=== PATIENT | female | born 1950 | race Caucasian/White ===

== ENCOUNTER 2017-03-29 21:18 | Inpatient (IN) | payer BC, OTHER ==
--- NOTE | 2017-03-29 22:01 | PDOC ---
History of Present Illness - General History Source: Patient Exam Limitations: No Limitations <Deandra Frank - Last Filed: 03/30/17 01:00> - General History Source: Patient Exam Limitations: No Limitations - History of Present Illness Initial Comments: 03/29/17 22:15 The patient is a 66 year old female with no reported significant past medical history, who presents to the ER with swelling and redness to the tip of the right index finger for two days. Patient states she is left hand dominant. Patient got her nails done three days ago and reports onset of pain under the nail of the right index finger and at the DIP one day ago. Patient states the redness and swelling gradually worsened. Pain is worse when pressing on the nail and the joint. Patient says she is not able to tell if she had a fever. Denies active bleeding, pus Denies paresthesia Denies weakness Denies numbness Denies history of gout PCP: Dr. Cherry Mann Allergies: Pollen, apple, peaches, plums Surgical Hx: Total Hysterectomy for fibroids <Jessica Whittington - Last Filed: 03/30/17 01:05> - General Chief Complaint: Redness To Affected Area Stated Complaint: FINGER SWOLLEN Time Seen by Provider: 03/29/17 21:41 Past History - Past Medical History Other medical history: denies - Immunization History Immunization Up to Date: Yes - Psycho/Social/Smoking Cessation Hx Anxiety: No Suicidal Ideation: No Smoking Status: No Smoking History: Never smoked Number of Cigarettes Smoked Daily: 0 Hx Alcohol Use: Yes (occasion) <Deandra Frank - Last Filed: 03/30/17 01:00> <Jessica Whittington - Last Filed: 03/30/17 01:05> - Past Medical History Allergies/Adverse Reactions: Allergies Allergy/AdvReac Type Severity Reaction Status Date / Time Penicillins Allergy Verified 03/29/17 21:23 Home Medications: Ambulatory Orders No Home Medications 0 dose .ROUTE UTDICT 05/02/13 Review of Systems - Review of Systems Able to Perform ROS?: Yes Comments:: 03/29/17 22:15 GENERAL/CONSTITUTIONAL: No: fever, chills, weakness, loss of appetite. HEAD, EYES, EARS, NOSE AND THROAT: No: change in vision, ear pain, discharge, sore throat, throat swelling. CARDIOVASCULAR: No: chest pain, lightheadedness, palpitations, syncope RESPIRATORY: No: cough, shortness of breath, wheezing, hemoptysis, stridor. GASTROINTESTINAL: No: nausea, vomiting, abdominal cramping, diarrhea, rectal bleeding, constipation. GENITOURINARY: No: dysuria, hematuria, frequency, urgency, flank pain. MUSCULOSKELETAL: No: back pain, neck pain, joint pain, muscle swelling or pain SKIN AND BREASTS: (+) redness and swelling on the tip of right index finger. No : lesions, pallor, rash or easy bruising. NEUROLOGIC: No: headache, vertigo, paresthesias, weakness ENDOCRINE: No: unexplained weight gain or loss HEMATOLOGIC/LYMPHATIC: No: anemia, easy bleeding, swelling nodes <Jessica Whittington - Last Filed: 03/30/17 01:05> *Physical Exam - Vital Signs Last Vital Signs Temp Pulse Resp BP Pulse Ox 97.6 F 76 18 141/97 99 03/29/17 21:20 03/29/17 21:20 03/29/17 21:20 03/29/17 21:20 03/29/17 21:20 <Deandra Frank - Last Filed: 03/30/17 01:00> - Vital Signs Last Vital Signs Temp Pulse Resp BP Pulse Ox 97.6 F 76 18 141/97 99 03/29/17 21:20 03/29/17 21:20 03/29/17 21:20 03/29/17 21:20 03/29/17 21:20 - Physical Exam Comments: 03/29/17 22:16 GENERAL: The patient is in no acute distress. HEAD: Normal with no signs of trauma. EYES: PERRLA, EOMI, sclera anicteric, conjunctiva clear. ENT: Ears normal, nares patent, oropharynx clear without exudates. Moist mucous membranes. NECK: Normal range of motion, supple without lymphadenopathy, JVD, or masses. LUNGS: Breath sounds equal, clear to auscultation bilaterally. No wheezes, and no crackles. HEART:Regular rate and rhythm, normal S1 and S2 without murmur, rub or gallop. ABDOMEN: Soft, nontender, normoactive bowel sounds. No guarding, no rebound. EXTREMITIES: Normal range of motion, no edema. No clubbing or cyanosis. No erythema, or tenderness. NEUROLOGICAL: Cranial nerves II through XII grossly intact. Normal speech. No focal neurological deficits. MUSCULOSKELETAL: Right index DIP is erythematous and swollen. Pain with movement of the DIP. No feeling of pus. No history of gout. Back non-tender to palpation, no CVA tenderness SKIN: Warm, Dry, normal turgor, no rashes or lesions noted. <Jessica Whittington - Last Filed: 03/30/17 01:05> ED Treatment Course - LABORATORY CBC & Chemistry Diagram: 03/29/17 22:45 03/29/17 22:45 <Deandra Frank - Last Filed: 03/30/17 01:00> - LABORATORY CBC & Chemistry Diagram: 03/29/17 22:45 03/29/17 22:45 <Jessica Whittington - Last Filed: 03/30/17 01:05> Medical Decision Making - Medical Decision Making 03/29/17 21:55 A portion of this note was documented by scribe services under my direction. I have reviewed the details of the note, within reason, and agree with the documentation with the following case summary and management plan written by me. Nursing documentation reviewed and incorporated into medical decision making This is a 66-year-old left-hand dominant female presented to emergency department with pain of the right index finger. Patient is status post manicure 3 days ago. She noted last night anger pain which has progressively worsened. Now she has pain even to the slightest touch of her finger. No fevers, no chills. On examination: No obvious abscess pt has tenderness with minimal palpation of the finger ? purulence beneath the nail 03/29/17 23:49 Laboratory Tests 03/29/17 03/29/17 22:45 22:45 WBC 7.4 Hgb 12.8 Hct 38.4 Plt Count 273 Sodium 142 Potassium 4.1 Chloride 106 Carbon Dioxide 28 BUN 13 D Creatinine 1.0 Random Glucose 103 03/29/17 23:50 Awaiting x ray 03/30/17 00:43 Will give clindamycin as patient states her ALLERGY to penicillin is a diffuse rash Upon re assessment, erythema streaking up the ulnar side of the pointer finger This is new 03/30/17 01:[address] Moss Will admit for IV abx Finger infection Lymphangitis <Deandra Frank - Last Filed: 03/30/17 01:00> - Medical Decision Making 03/30/17 01:[address] Moss <Jessica Whittington - Last Filed: 03/30/17 01:05> *DC/Admit/Observation/Transfer - Discharge Dispostion Admit: Yes <Deandra Frank - Last Filed: 03/30/17 01:00> - Attestations Scribe Attestion: 03/29/17 22:17 Documentation prepared by Jessica Whittington, acting as biomedical manager for Deandra Frank MD. <Jessica Whittington - Last Filed: 03/30/17 01:05> Diagnosis at time of Disposition: Cellulitis of finger of right hand - Discharge Dispostion Condition at time of disposition: Stable
[2017-03-29 22:59] LABS: BASOPHIL 1.3 % (0-2.0); MCH 31.6 pg (25.7-33.7); MCHC 33.3 g/dl (32.0-36.0); MEAN PLT VOLUME 7.8 fl (7.5-11.1); NEUTROPHILS 52.3 % (42.8-82.8); PLATELET COUNT 273 K/MM3 (134-434); RDW 13.8 % (11.6-15.6); WHITE BLOOD COUNT 7.4 K/mm3 (4.0-10.0)
[2017-03-29 23:35] LABS: ALBUMIN 3.9 g/dl (3.4-5.0); ANION GAP 8 (8-16); BILIRUBIN,TOTAL 0.4 mg/dL (0.2-1.0); CO2 28 mmol/L (21-32); GLUCOSE,RANDOM 103 mg/dL (74-106); SGOT/AST 15 U/L (15-37); SGPT/ALT 18 U/L (12-78); TOT PROT 7.1 g/dl (6.4-8.2)
[2017-03-29 23:36] LABS: ALK PHOS 108 U/L (45-117)
[2017-03-29] MEDS ORDERED: IBUPROFEN 800 MG/8 ML IJ IVPB ONE ×2 (23:50→23:53)
[2017-03-29] MEDS ORDERED: CEFAZOLIN (PRE-DOCKED) 50 ML IVPB ONE (23:51)
[2017-03-29] MEDS ORDERED: IBUPROFEN 600 MG TABLET (FP) PO ONE (23:51)
[2017-03-30] MEDS ORDERED: CLINDAMYCIN IVPB 300 MG in DEXTROSE 5%-WATER - 48 ML IVPB ONE ×2 (00:43→00:52)
[2017-03-30] MEDS ORDERED: CLINDAMYCIN 600MG PREMIX IVPB 50 ML IVPB ONE (00:49)
[2017-03-30] MEDS ORDERED: VANCOMYCIN 1,000 MG in DEXTROSE 5%-WATER - 250 ML IVPB ONE (00:51)
[2017-03-30] MEDS ORDERED: VANCOMYCIN 1 GRAM (PRE-DOCKED) 250 ML IVPB ONE (01:51)
[2017-03-30 03:43] VITALS: BMI 25.9
[2017-03-30] MEDS ORDERED: PT OWN MED DRAWER 7, Y5N ONE (08:57)
[2017-03-30] MEDS ORDERED: CLINDAMYCIN 300 MG PREMIX IVPB 50 ML IVPB SCH (09:00)
--- NOTE | 2017-03-30 12:33 | PN ---
Progress Note (short form) - Note Progress Note: ID consult dictated 66 year old female on no meds at home, dosen't go to the doctor much developed pain and swelling of the right index finger after a manicure on Thursday. no fevers or chills. the finger became more swollen and the pain was throbbing. she presented to the ED where she had an xray of the finger, blood cultures and was started on clindamycin (pen allergy). She as given one dose of vancomycin in the ED she notes improvement in the erythema and pain this am of note she has arthritic changes to all her fingers cellulitis right index finger- doubt septic arthritis- await hand surgery consult, no obvious abscess noted pen allergy -rash suggest continue clindamycin- adjust dose to 600 q8h, f/u with hand surgery if improved can switch to po clindamycin 300 tid in am would add bacid for next one month Problem List - Problems (1) Cellulitis of finger of right hand Code(s): L03.011 - CELLULITIS OF RIGHT FINGER (2) Anaphylactic reaction Code(s): T78.2XXA - ANAPHYLACTIC SHOCK, UNSPECIFIED, INITIAL ENCOUNTER (3) Penicillin allergy Code(s): Z88.0 - ALLERGY STATUS TO PENICILLIN
--- NOTE | 2017-03-30 13:08 | PN ---
Problem List - Problems (1) Cellulitis of finger of right hand Code(s): L03.011 - CELLULITIS OF RIGHT FINGER (2) Penicillin allergy Code(s): Z88.0 - ALLERGY STATUS TO PENICILLIN
[2017-03-30] MEDS: LACTOBACILLUS ACIDOPHILUS 1 EACH TAB (FP) PO SCH ×2 (13:24→21:00)
--- NOTE | 2017-03-30 16:52 | HP ---
Admitting History and Physical - Primary Care Physician PCP: Alex Moss - Admission Chief Complaint: finger pain History of Present Illness: Pt with right index pain after manicure on ; Thursday she started having finger pain, around the nail bed and under the nail; last night she came to ER and was admitted for treatment. History Source: Patient Limitations to Obtaining History: No Limitations - Smoking History Smoking history: Never smoked Aproximately how many cigarettes per day: 0 - Alcohol/Substance Use Hx Alcohol Use: Yes (occasion) Home Medications - Allergies Allergies/Adverse Reactions: Allergies Allergy/AdvReac Type Severity Reaction Status Date / Time Penicillins Allergy Verified 03/29/17 21:23 - Home Medications Home Medications: Ambulatory Orders No Home Medications 0 dose .ROUTE UTDICT 05/02/13 Review of Systems - Review of Systems Constitutional: denies: Chills, Fever Eyes: denies: Blurred Vision, Double Vision HENT: denies: Difficult Swallowing, Ear Discharge, Ear Pain, Throat Pain Neck: denies: Pain on Movement, Stiffness Cardiovascular: denies: Chest Pain, Edema, Palpitations Respiratory: denies: Cough, SOB, Wheezing Gastrointestinal: denies: Abdominal Pain, Diarrhea, Nausea, Vomiting Genitourinary: denies: Burning, Discharge Musculoskeletal: denies: Back Pain, Muscle Pain Integumentary: denies: Blister, Bruising Neurological: denies: Change in LOC, Change in Speech, Confusion Endocrine: denies: Excessive Sweating, Intolerance to Cold Hematology/Lymphatic: denies: Easily Bruised, Excessive Bleeding Physical Examination Vital Signs: Vital Signs Temperature 98.3 F 03/30/17 14:26 Pulse Rate 68 03/30/17 14:26 Respiratory Rate 20 03/30/17 14:26 Blood Pressure 123/76 03/30/17 14:26 O2 Sat by Pulse Oximetry (%) 97 03/30/17 09:00 Constitutional: Yes: No Distress, Calm Eyes: Yes: Conjunctiva Clear, EOM Intact, PERRL HENT: Yes: Normocephalic. No: Epistaxis Neck: Yes: Trachea Midline. No: Lymphadenopathy Cardiovascular: Yes: Regular Rate and Rhythm, S1, S2 Respiratory: Yes: Regular, CTA Bilaterally. No: Rales Gastrointestinal: Yes: Normal Bowel Sounds, Soft. No: Tenderness Renal/: No: CVA Tenderness - Left, CVA Tenderness - Right Musculoskeletal: No: Back Pain, Joint Swelling Extremities: Yes: Other (right index, distal phalanx with erythema and swelling and pain to palpation and apsive movements; no discharge, no bleed) Edema: No Neurological: Yes: Alert, Oriented, Cran Nerves II-XII Intact Labs: reviewed Imaging - Results X-ray: Pending Problem List - Problems (1) Cellulitis of finger of right hand Code(s): L03.011 - CELLULITIS OF RIGHT FINGER Assessment/Plan IV abtx. ID consult Ortho consult To f/u AM labs
[2017-03-30] MEDS: CLINDAMYCIN 600MG PREMIX IVPB 50 ML IVPB SCH (18:07)
--- NOTE | 2017-03-30 20:00 | CONS ---
DATE OF CONSULTATION: REQUESTING PHYSICIAN: Alex Moss MD HISTORY: This is a 66-year-old woman with no significant past medical history. She presented to the emergency room yesterday complaining of a painful, red, throbbing right index finger. She had a manicure on . She had artificial nails attached to her fingers as well. Subsequently, the right finger started bothering her. It became more erythematous and swollen, and the pain became more persistent over the course of the next several days. She presented last night to the ER with these complaints. There are no fevers or chills. She denies nausea, vomiting, diarrhea, or dysuria. She was given vancomycin and clindamycin in the emergency room and reports some moderate improvement in her symptoms. 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 She had an x-ray done that showed possible osteoarthritis. She was noted to have some streaking of erythema along the ulnar aspect of the 5th finger, and she was admitted. PAST MEDICAL HISTORY: Notable for an admission for anaphylaxis in 2013, which she reports was to [facility]. She required ICU admission for anaphylaxis. She has a history of appendectomy at age 14. She has had a history of section in the past. ALLERGIES: PENICILLIN. Some time in her 30s she had a reaction that she noted was a severe rash. SOCIAL HISTORY: She has 7 children, 6 of whom are alive. She is a . There is no history of any substance use. MEDICATIONS: She takes no medicines regularly. REVIEW OF SYSTEMS: She has had no weight loss, nausea, vomiting, diarrhea, or dysuria. Has no chest pain. PHYSICAL EXAMINATION: Vital Signs: Temperature 98.3, pulse 74, blood pressure 130/50, respiratory rate 18, weight 151 pulse. HEENT: Normocephalic. Her eyes are anicteric. Neck: Supple. Lungs: Clear to auscultation. Heart: Regular rate and rhythm. Abdomen: Soft and nontender. Extremities: Her right pointer finger is minimally erythematous. There is no fluctuance to suggest abscess. There is no purulence. The tip is mildly erythematous as well. She has no lymphangitic streaking. 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 LABORATORIES: Notable for a white count of 7.4, hemoglobin 12.8, platelets 273 , BUN 13, creatinine 1. LFTs are normal. Blood cultures are pending. X-rays previously reported. ASSESSMENT/PLAN: 1. In summary, this is a 66-year-old woman with cellulitis of her right index finger. I doubt she has septic arthritis. Will await a hand surgery consult. There is no obvious abscess noted. 2. PENICILLIN allergy manifested by rash. I would suggest continuing clindamycin adjusting her dose. Follow up with hand surgery. If improved, can switch to oral clindamycin in the morning. Would add Bacid for the next 1 month as well to prevent antibiotic-associated diarrhea. Further recommendations to follow. Daniel [id number] MTDD
[2017-03-30] MEDS: traMADol HCL 50 MG TABLET PO PRN (21:06)
[2017-03-31] MEDS: CLINDAMYCIN 600MG PREMIX IVPB 50 ML IVPB SCH ×3 (02:39→17:27)
[2017-03-31 07:36] LABS: MEAN PLT VOLUME 7.9 fl (7.5-11.1); PLATELET COUNT 270 K/MM3 (134-434); RDW 13.4 % (11.6-15.6); WHITE BLOOD COUNT 6.4 K/mm3 (4.0-10.0)
[2017-03-31 07:44] LABS: ALBUMIN 3.3 g/dl (3.4-5.0); ALK PHOS 100 U/L (45-117); ANION GAP 7 (8-16); BILIRUBIN,TOTAL 0.8 mg/dL (0.2-1.0); CALCIUM 8.6 mg/dL (8.5-10.1); CO2 28 mmol/L (21-32); CREATININE 0.7 mg/dL (0.55-1.02); GLUCOSE,RANDOM 93 mg/dL (74-106); SGOT/AST 15 U/L (15-37); SGPT/ALT 16 U/L (12-78); TOT PROT 6.6 g/dl (6.4-8.2)
[2017-03-31] MEDS: LACTOBACILLUS ACIDOPHILUS 1 EACH TAB (FP) PO SCH ×2 (09:31→21:54)
--- NOTE | 2017-03-31 10:26 | PN ---
Progress Note, Physician History of Present Illness: right index pain is better No fever, abd pain, diarrhea. Pt asked to have an examination of both breast, as she noticed for the last several weeks that her nipples are inverted; no pain, no discharge, no bleed, no mass noticed. Patient was exminated in the presence of her morning nurse (Sunni) - Current Medication List Current Medications: Active Medications Clindamycin Phosphate (Cleocin 600 Mg Premix Ivpb -) 50 mls @ 100 mls/hr IVPB Q8H-IV MORENO Last Admin: 03/31/17 09:31 Dose: 100 mls/hr Lactobacillus Acidophilus (Bacid -) 1 tab PO BID MORENO Last Admin: 03/31/17 09:31 Dose: 1 tab Tramadol HCl (Ultram -) 50 mg PO Q12H PRN PRN Reason: PAIN Last Admin: 03/30/17 21:06 Dose: 50 mg - Objective Vital Signs: Vital Signs Temperature 97.9 F 03/31/17 05:38 Pulse Rate 67 03/31/17 05:38 Respiratory Rate 18 03/31/17 05:38 Blood Pressure 133/75 03/31/17 05:38 O2 Sat by Pulse Oximetry (%) 98 03/30/17 21:00 Constitutional: Yes: No Distress, Calm Cardiovascular: Yes: Regular Rate and Rhythm, S1, S2 Respiratory: Yes: Regular, CTA Bilaterally Breast(s): Yes: Nipple Inversion (bilat). No: Discharge from Nipple ( bilaterally), Mass (bilaterally, with palpation of both breasts and nipples), Skin Changes (bilaterally) Extremities: Yes: Other (right index examination: improved (less erythema, swelling, pain with palaption)) Neurological: Yes: Alert, Oriented Labs: CBC, BMP 03/31/17 06:00 03/31/17 06:00 Problem List - Problems (1) Cellulitis of finger of right hand Code(s): L03.011 - CELLULITIS OF RIGHT FINGER Assessment/Plan IV abtx. ID consult appreciated Ortho consult. I reccomended to pt to f/u with PCP about breast reevaluatin- pt's daughter at bed side To f/u AM labs
--- NOTE | 2017-03-31 15:14 | PN ---
Progress Note (short form) - Note Progress Note: finger pain much improved less erythema Vital Signs Period Temp Pulse Resp BP Sys/Yeager Pulse Ox Last 24 Hr 97.8 F-97.9 F 67-80 16-18 119-146/63-79 98-98 cor-rrr lungs clear finger with less erythema , less pain, no draiange, no fluctuance, full ROM CBC, BMP 03/31/17 06:00 03/31/17 06:00 Microbiology 03/29/17 23:10 Blood - Peripheral Venous Blood Culture - Preliminary NO GROWTH OBTAINED AFTER 24 HOURS, INCUBATION TO CONTINUE FOR 4 DAYS. 03/29/17 22:45 Blood - Peripheral Venous Blood Culture - Preliminary NO GROWTH OBTAINED AFTER 24 HOURS, INCUBATION TO CONTINUE FOR 4 DAYS. a/p cellulitis right index finger- doubt septic arthritis- improved pen allergy -rash can switch to po clindamycin 300 tid for 7 days would add bacid for next one month Problem List - Problems (1) Cellulitis of finger of right hand Code(s): L03.011 - CELLULITIS OF RIGHT FINGER (2) Penicillin allergy Code(s): Z88.0 - ALLERGY STATUS TO PENICILLIN
--- NOTE | 2017-03-31 16:05 | PN ---
Progress Note (short form) - Note Progress Note: Pt seen and examined. She is a 66 year old female with a few day history of worsening cellulitis/infection of the right index finger. She has improved dramatically over the past 24 hours, on IV antibiotics. She states there is less pain, better ROM, less swelling, less erythema. WBC=6.4 Bld Cx negative after 4 days PE Today her right index finger is mildly swollen over the distal phalanx, mostly in the paranychial area. Excellent ROM with min pain. Mild erythema. Moderately tender over the distal phalanx, and tuft. NVI + baseline arthritic deformities Imp Overall pt doing very well, improving dramatically on IV antibiotics. Rec Con't abx as per ID. No surgery necessary at this time
[2017-03-31] MEDS: traMADol HCL 50 MG TABLET PO PRN (21:54)
[2017-04-01] MEDS: CLINDAMYCIN 600MG PREMIX IVPB 50 ML IVPB SCH ×2 (01:10→13:03)
[2017-04-01] MEDS: LACTOBACILLUS ACIDOPHILUS 1 EACH TAB (FP) PO SCH (09:26)
--- NOTE | 2017-04-01 10:58 | PN ---
Progress Note (short form) - Note Progress Note: Pt seen and examined. She continues to improve. Her index finger has less swelling, less erythema, better ROM, less tenderness. No drainage. No indication for surgery at this time. Will follow PRN. She can f/u as an out pt.
[2017-04-01 11:22] VITALS: BP 187/75; PULSE 87; TEMP 98
--- NOTE | 2017-04-01 12:21 | DS ---
Physical Examination Vital Signs: Vital Signs Temperature 98 F 04/01/17 10:00 Pulse Rate 87 04/01/17 10:00 Respiratory Rate 20 04/01/17 10:00 Blood Pressure 187/75 04/01/17 10:00 O2 Sat by Pulse Oximetry (%) 94 L 04/01/17 09:00 Findings/Remarks: Pt with less finger pain and swelling. Pt w/o fever, chills, cg, CP, abd pain, N, V. Constitutional: Yes: No Distress, Calm Cardiovascular: Yes: Regular Rate and Rhythm, S1, S2 Respiratory: Yes: Regular, CTA Bilaterally. No: Rales Gastrointestinal: Yes: Normal Bowel Sounds, Soft. No: Palpable Mass, Tenderness Extremities: Yes: Other (Right index finger: erythema of distal phalang, minimal swelling and pain with palpation) Edema: No Neurological: Yes: Alert, Oriented Labs: CBC, BMP 03/31/17 06:00 03/31/17 06:00 Discharge Summary Reason For Visit: CELLULITITS OF FINGER OF RIGHT HAND Current Active Problems Cellulitis of finger of right hand (Acute) Penicillin allergy (Acute) Hospital Course: Pt went for manicure a week ago (), couple of days later developed right index finger pain; she came to ER on Thursday and was admitted for treatment. Pt with PCN allergy, was started on Clindamycin (also received one dose of Vanco); pt was seen by ID (Dr. James- she recommended to continue on Clinda) and Hand Sx( Dr. Pro- recommended medical treatment). Pt to be DC 'ed home with follow-up with PCP (Dr. Alton Mann) and hand Sx (Dr. Pro) within one week, before finishing antibiotic; pt and pt's dg all questions were answered, agreed with follow-up.. Condition: Stable - Instructions Referrals: Cherry Mann MD [Staff Physician] - (within one week, before finishing antibiotic) Jc Pro MD [Staff Physician] - (within one week, before finishing antibiotic) Disposition: HOME - Home Medications Comprehensive Discharge Medication List: Ambulatory Orders SEE discharge papers Clindamycin Bacid Tylenol 650 mg as nedded every 6 hours for pain
[2017-04-01] MEDS ORDERED: CLINDAMYCIN HCL 150 MG CAPSULE (FP) PO SCH (14:00)
== END 2017-04-01 14:53 | disposition home or self-care (01) | DRG 603 ==
LOC: JER 21:18 → JERBED 03-30 01:02 → J7W 03-30 03:02
PROVIDERS: ADMIT Specialist; ATTEND Specialist
DX: L03.011 Cellulitis of right finger (principal); Z88.0 Allergy status to penicillin
CPT/HCPCS: 36415; 73140-TC-RT; 80053; 84550; 85025; 85027; 87040; 99283-25

== ENCOUNTER 2017-04-06 14:56 | Emergency (ER) | payer BC, OTHER ==
[2017-04-06 15:02] VITALS: BP 127/82; PULSE 76; TEMP 98.3; BMI 25.7
--- NOTE | 2017-04-06 17:06 | PDOC ---
History of Present Illness - General Chief Complaint: Injury Stated Complaint: FOLLOW UP, REVISIT Time Seen by Provider: 04/06/17 16:44 History Source: Patient Exam Limitations: No Limitations - History of Present Illness Initial Comments: 04/06/17 17:01 My Chief Complaint: drainage from rt. index finger today History of Present Illness: Pt went for manicure a week ago 03/26/17, couple of days later developed right index finger pain; she came to ER on Thursday03/29/17 and was admitted for treatment. Pt with PCN allergy, was started on Clindamycin (also received one dose of Vanco); pt was seen by ID (Dr. James- she recommended to continue on Clinda) and Hand Sx( Dr. Pro- recommended medical treatment). Pt. was discharged to home on clindamycin 300 mg q8 hrs, pt. was to follow-up with PCP ( Dr. Alton Mann) and hand Sx (Dr. Pro) within one week, before finishing antibiotic.She did not see her PCP was on vacation, did not see Dr. Pro patient reports that she finished the antibiotic today and noticed drainage from her right index finger around nailbed that was white to yellowish in color and was very foul smelling. Patient reports that area around her nailbed right index finger is much less red and is not tender to touch. Patient denies any fever. Patient has full range of motion of digit. 04/06/17 17:06 04/06/17 17:51 04/06/17 17:52 Timing/Duration: changing over time (had fowl smelling yellowish discharge today from rt. index finger) Severity: mild Associated Symptoms: reports: other (drainage from rt. index finger around nailbed) Past History - Past Medical History Allergies/Adverse Reactions: Allergies Allergy/AdvReac Type Severity Reaction Status Date / Time Penicillins Allergy Verified 04/06/17 14:57 Home Medications: Ambulatory Orders Clindamycin [Cleocin -] 300 mg PO TID #24 cap 04/01/17 Lactobacillus Acidophilus [Bacid -] 1 tab PO BID #60 tab 04/01/17 - Immunization History Immunization Up to Date: Yes - Psycho/Social/Smoking Cessation Hx Anxiety: No Suicidal Ideation: No Smoking Status: No Smoking History: Never smoked Have you smoked in the past 12 months: No Number of Cigarettes Smoked Daily: 0 Information on smoking cessation initiated: No Hx Alcohol Use: No Drug/Substance Use Hx: No Review of Systems - Review of Systems Able to Perform ROS?: Yes Constitutional: No: Symptoms Reported HEENTM: No: Symptoms Reported Respiratory: No: Symptoms reported Cardiac (ROS): No: Symptoms Reported ABD/GI: No: Symptoms Reported : No: Symptoms Reported Musculoskeletal: No: Symptoms Reported Integumentary: Yes: Other (drainage from rt. index finger around nailbed today fowl smelling white to yellowish, area per pt is much less erythematous) Neurological: No: Symptoms reported *Physical Exam - Vital Signs Last Vital Signs Temp Pulse Resp BP Pulse Ox 98.3 F 76 16 127/82 97 04/06/17 14:57 04/06/17 14:57 04/06/17 14:57 04/06/17 14:57 04/06/17 14:57 - Physical Exam General Appearance: Yes: Appropriately Dressed Extremity: positive: Normal Capillary Refill, Normal Inspection (with exception of minimal erythema paronychium), Normal Range of Motion (rt. index finger at DIP, PIP and MCP jt), Erythema (minimal erythema rt. index around nailbed). negative: Tender (rt. index finger) Integumentary: positive: Erythema (rt. index finger minimal erythema paronychium ). negative: Swelling (rt. index finger ) ED Treatment Course - RADIOLOGY Radiology Studies Ordered: Category Date Time Status FINGER(S) RIGHT [RAD] Stat Radiology 04/06/17 16:56 Ordered Medical Decision Making - Medical Decision Making 04/06/17 17:52 Pt went for manicure a week ago 03/26/17, couple of days later developed right index finger pain; she came to ER on Thursday03/29/17 and was admitted for treatment. Pt with PCN allergy, was started on Clindamycin (also received one dose of Vanco); pt was seen by ID (Dr. James- she recommended to continue on Clinda) and Hand Sx( Dr. Pro- recommended medical treatment). Pt. was discharged to home on clindamycin 300 mg q8 hrs, pt. was to follow-up with PCP ( Dr. Alton Mann) and hand Sx (Dr. Pro) within one week, before finishing antibiotic.She did not see her PCP was on vacation, did not see Dr. Pro patient reports that she finished the antibiotic today and noticed drainage from her right index finger around nailbed that was white to yellowish in color and was very foul smelling. Patient reports that area around her nailbed right index finger is much less red and is not tender to touch. Patient denies any fever. Patient has full range of motion of digit. Rt. index resolving infection PLAN: Xray rt. index finger unchanged from 03/31/17 pt has DJD osteoarthritis of index finger She instructed to soak finger in warm salt water 3 times a day and to follow-up with primary care provider as soon as possible and Dr. Pro Patient also informed that she must return to emergency room if increased redness of right index finger or swelling or fever or chills or pain *DC/Admit/Observation/Transfer Diagnosis at time of Disposition: Cellulitis of index finger Qualifiers: Laterality: right Qualified Code(s): L03.011 - Cellulitis of right finger - Discharge Dispostion Disposition: HOME Condition at time of disposition: Stable - Referrals Referrals: Cherry Mann MD [Primary Care Provider] - Jc Pro MD [Staff Physician] - - Patient Instructions Additional Instructions: Your right index finger in warm salt water 3 times a day for the next few days Follow-up with your primary care provider as soon as possible Follow-up with Dr. Pro orthopedist as soon as possible Return to emergency room if any fever or increased redness around nailbed right finger or increased pain or swelling or chills Patient voiced understanding of discharge instructions and all questions were answered
== END 2017-04-06 17:57 | disposition home or self-care (01) ==
LOC: JERFT 14:56
DX: L03.011 Cellulitis of right finger (principal); M19.041 Primary osteoarthritis, right hand
CPT/HCPCS: 73140-TC-RT; 99281-25

== ENCOUNTER 2017-09-27 06:52 | Emergency (ER) | payer OTHER, BC ==
[2017-09-27 07:22] VITALS: BP 131/75; PULSE 75; TEMP 97.8; BMI 27.4
--- NOTE | 2017-09-27 07:44 | PDOC ---
History of Present Illness - General Chief Complaint: Rash Stated Complaint: R/O SHINGLES Time Seen by Provider: 09/27/17 07:27 History Source: Patient Exam Limitations: No Limitations - History of Present Illness Initial Comments: 09/27/17 07:39 The patient is a very pleasant 67F with no significant PMH who presents to the ED with a painful rash. The rash started yesterday but she says the area was painful 1 week ago. She states it started as a back pain and then progressed to a rash. The rash is located on her R side, erythematous, with vesicles. She has no other complaints today. Past History - Past Medical History Allergies/Adverse Reactions: Allergies Allergy/AdvReac Type Severity Reaction Status Date / Time Penicillins Allergy Verified 09/27/17 07:22 Home Medications: Ambulatory Orders Clindamycin [Cleocin -] 300 mg PO TID #24 cap 04/01/17 Lactobacillus Acidophilus [Bacid -] 1 tab PO BID #60 tab 04/01/17 Methylprednisolone [Medrol Dose Vicente] 4 mg PO ASDIR #21 tablet 09/27/17 Valacyclovir HCl [Valtrex -] 1,000 mg PO TID #21 tablet MDD 3 09/27/17 COPD: No - Immunization History Immunization Up to Date: Yes - Suicide/Smoking/Psychosocial Hx Smoking Status: No Smoking History: Never smoked Have you smoked in the past 12 months: No Number of Cigarettes Smoked Daily: 0 Information on smoking cessation initiated: No Hx Alcohol Use: No Drug/Substance Use Hx: No Substance Use Type: None Review of Systems - Review of Systems Able to Perform ROS?: Yes Comments:: 09/27/17 07:42 GENERAL/CONSTITUTIONAL: No fever or chills. No weakness. HEAD, EYES, EARS, NOSE AND THROAT: No change in vision. No ear pain or discharge. No sore throat. GASTROINTESTINAL: No nausea, vomiting, diarrhea, constipation, or abdominal pain. GENITOURINARY: No dysuria, frequency, hematuria, or change in urination. CARDIOVASCULAR: No chest pain, palpitations, or lightheadedness. RESPIRATORY: No cough, wheezing, shortness of breath, or hemoptysis. MUSCULOSKELETAL: No joint or muscle swelling or pain. No neck or back pain. SKIN: Positive for rash. No lesions. NEUROLOGIC: No headache, numbness, tingling, weakness, loss of consciousness, or change in strength/sensation. ENDOCRINE: No increased thirst. No abnormal weight change. HEMATOLOGIC/LYMPHATIC: No anemia, easy bleeding, or history of blood clots. ALLERGIC/IMMUNOLOGIC: No hives or skin allergy. Is the patient limited Samoan proficient: No *Physical Exam - Vital Signs Last Vital Signs Temp Pulse Resp BP Pulse Ox 97.8 F 75 18 131/75 100 09/27/17 07:19 09/27/17 07:19 09/27/17 07:19 09/27/17 07:19 09/27/17 07:19 - Physical Exam Comments: 09/27/17 07:42 GENERAL: Well developed, well nourished. Awake and alert. No acute distress. HEENT: Normocephalic, atraumatic. Hearing grossly normal. Moist mucous membranes. NECK: Supple. Full ROM. No JVD. Carotid pulses 2+ and symmetric, without bruits. No thyromegaly. No lymphadenopathy. CARDIOVASCULAR: Regular rate and rhythm. No murmurs, rubs, or gallops. Distal pulses are 2+ and symmetric. PULMONARY: No evidence of respiratory distress. Lungs clear to auscultation bilaterally. No wheezing, rales or rhonchi. ABDOMINAL: Soft. Non-tender. Non-distended. No rebound or guarding. No organomegaly. Normoactive bowel sounds. GENITOURINARY: No CVA tenderness bilaterally. MUSCULOSKELETAL: Normal range of motion at all joints. No bony deformities or tenderness. EXTREMITIES: No cyanosis. No clubbing. No edema. No calf tenderness. SKIN: Erythematous, vesicular rash in R T5-T7 distribution, unilateral. Otherwise, warm and dry. Normal capillary refill. No rashes. No jaundice. NEUROLOGICAL: Alert, awake, appropriate. Cranial nerves 2-12 intact. Normal speech. Gait is normal without ataxia. PSYCHIATRIC: Cooperative. Good eye contact. Appropriate mood and affect. Medical Decision Making - Medical Decision Making 09/27/17 07:38 The patient is a 67F with no PMH who presents with 1 week of pain with a R sided rash that started yesterday. The rash is most likely shingles. The patient does not specifically recall if she had chicken pox in her life. I will prescribe valtrex and a medrol dose pack for symptomatic treatment. Of note, Cr from 03/31/17 noted and normal at 0.7. Will educate the patient on exposure as she says she will be around children for the holiday season. *DC/Admit/Observation/Transfer Diagnosis at time of Disposition: Shingles Qualifiers: Herpes zoster complications: without complications Qualified Code(s): B02.9 - Zoster without complications - Discharge Dispostion Disposition: HOME Condition at time of disposition: Stable Admit: No - Prescriptions Prescriptions: Methylprednisolone [Medrol Dose Vicente] 4 mg PO ASDIR #21 tablet Valacyclovir HCl [Valtrex -] 1,000 mg PO TID #21 tablet MDD 3 - Referrals Referrals: Cherry Mann MD [Primary Care Provider] - - Patient Instructions Printed Discharge Instructions: Andrew, DI for Shingles Additional Instructions: Please return to the ER if symptoms persist, worsen, or new symptoms arise. Please follow up with your primary care physician in 2-3 days. Please return to the ER if you have any signs or symptoms of chest pain, shortness of breath, uncontrollable fever, chills, nausea, vomiting, numbness, tingling, or weakness in any part of your body, changes in vision, or slurred speech. Please take your medications as prescribed. - Post Discharge Activity
--- NOTE | 2017-09-27 08:21 | PDOC ---
Attending Attestation - Resident Resident Name: Miki Abel - ED Attending Attestation I have performed the following: I have examined & evaluated the patient, The case was reviewed & discussed with the resident, I agree w/resident's findings & plan, Exceptions are as noted - HPI HPI: 09/27/17 08:18 67-year-old healthy female presents with right back discomfort for about one week, and 1 day of rash. - Physicial Exam PE: 09/27/17 08:19 Vital signs normal, afebrile. Well-appearing Zoster rash in right T5 dermatome, otherwise uncomplicated and without evidence of superimposed infection No other rash, neurologically intact - Medical Decision Making 09/27/17 08:20 Patient seen and evaluated with the resident. I agree with the overall evaluation, assessment, and management with the following summary of visit: 67-year-old female with right T5 shingles rash, uncomplicated. Valtrex, steroids, pain control Precautions discussed regarding isolation Understands return criteria
== END 2017-09-27 08:37 | disposition home or self-care (01) ==
LOC: JER 06:52
DX: B02.9 Zoster without complications (principal)
CPT/HCPCS: 99281-25